=== PATIENT | female | born 1940 | race Caucasian/White ===

== ENCOUNTER 2020-08-14 08:05 | Outpatient (CLI) | payer OTHER | END 2020-08-14 08:22 | disposition home or self-care (01) | LOC: NUCLEAR 08:05 | PROVIDERS: ATTEND Internal Medicine Cardiovascular Disease | DX: R06.00 Dyspnea, unspecified (principal); R07.89 Other chest pain | CPT/HCPCS: 78452; 93017; A9500; J0153 ==